=== PATIENT | female | born 1990 | race Caucasian/White ===

== ENCOUNTER → 2018-08-03 | Outpatient (CLI) | payer BC ==
[~2018-08-03] MED LIST: ALB0.5 IH; ALBU8.5H12 IH; ALBUTEROL INHALER; AZIT-1 PO; AZIT-18 PO; FLUC150T40 PO; FLUC200T52 PO; HYDR5SYR2 PO; IRON; POTASSIUM; PRED20TA6 PO; VITAMIN B 12
--- NOTE | 2018-08-03 10:59 | RADIOLOGY IMAGING REPORT ---
FACILITY: [facility] PATIENT NAME: Vandana Scott : 1990 MR: [id number] V: [id number] EXAM DATE: ORDERING PHYSICIAN: KILEY BECKETT TECHNOLOGIST: Location: [facility] [place] Patient: Vandana Scott : 1990 Visit/Account:[id number] Date of Sevice: 08/03/2018 Exam type: CHEST PA AND LAT History: Shortness of breath, chest pain and cough since July 31, 2018 Comparison: January 03, 2014. Findings: The lungs are free of acute effusions, infiltrates or edema. There is no evidence of a pneumothorax or pneumomediastinum Cardiac silhouette is normal in size. The trachea is in midline. IMPRESSION: 1. No acute cardiopulmonary process is seen Report Dictated By: Jessie Crane MD at 08/03/2018 10:54 AM Report E-Signed By: Jessie Crane MD at 08/03/2018 10:55 AM WSN:[id number]
== END ==
LOC: RAD 10:22
PROVIDERS: ATTEND Nurse Practitioner Family
DX: R05 Cough (principal); R50.9 Fever, unspecified
CPT/HCPCS: 71046

== ENCOUNTER 2019-03-03 16:00 | Outpatient (RCR) | payer BC ==
--- NOTE | 2019-02-09 15:32 | PT INITIAL EVALUATION ---
MEDICAL DIAGNOSIS: MCL Strain, Overexertion of Right Knee TREATMENT DIAGNOSIS: Right MCL Strain, Right Patellofemoral Syndrome DATE OF ONSET: 02/08/19 SUBJECTIVE: Vandana is a 28 year old female presenting to physical therapy following recent injury to her R knee while playing roller derby. Pt reports that she started having pain around January 15 but that the pain increased substantially following a fall on January 22, 2019. Pain is located on the medial R knee and occasionally above the knee cap. Pain is currently minimal after resting it at 0-1/10 but typically is around 5-6/10 range. Pain is improved with ice and using CBD cream on it. Pain is increased with skating (stopping and cutting specifically), prolonged walking and twisting with it frequently feeling unsteady. Pain is worst at 9-10/[address] last Wednesday after refing a derby bout on Wednesday resulting in a limp and pain with leg extension. Pt had an US on January 27 confirming suspected MCL strain at a grade 1-2 level. REHAB PROBLEM LIST: Increased Pain Decreased ROM Decreased Strength Decreased Endurance Decreased Balance Decreased Function Decreased ADL's Decreased Mobility Decreased Gait PREVIOUS MEDICAL HISTORY: See EMR OCCUPATION: Radio DJ OBJECTIVE: Pt presents with minimal swelling along the medial R joint line. ROM: Knee ROM (R,L): 6-0-142, 6-0-146 Strength: LE MMT (R, L): Hip: flexion: 4-/5, 4-/5, ext: 5-/5, 5/5, abd: 4+/5, 4+/5, add: 4+/5, 5/5. Knee: flexion: 4/5 with pain, 5/5, ext: 4/5, 5/5. Ankle: DF: 5/5, 5/5, PF: 5/5, 5/5. Palpation: Pt is ttp along the R MCL and semitendinosus and semimembranosus Special Tests: (+) MCL laxity R with pain reproduction, (-) all other ligamentous testing, (+) lateral patellar tracking in 5/5 quad activations with minimal VMO activation Mobility: B LE Squatting x5: lateral R knee placement, SLS x5: significant medial hip collapse B with instability on R LE ASSESSMENT: "Francisca" presents with signs and symptoms consistent with patellofemoral syndrome B with R MCL strain. Physical therapy is indicated to address the above listed deficits to improve function with ADL's and recreational activities. Short Term Goals In 2 weeks pt will have good medial quad activation with medial patellar tracking with 5/5 quad sets for improved function with ADL's. In 4 weeks pt will be able to perform 5 SLS squats with good hip and knee mechanics for improved function with ADL's. In 6 weeks pt will be able to perform cutting and pivoting exercises without onset of knee pain for return to sport. In 6 weeks pt will increase strength as tested by MMT to 4+/5 or greater for improved function with ADL's. Patient's Goals Return to sport without knee pain. PLAN: Patient to be seen for Manual Therapy/STM/MET Strengthening/condition Ice/Heat Range of Motion Spinal Stabilization Ultrasound Stretching Iontophoresis Neuromuscular Re-ed Closed Chain Program Electrical Stim Posture/Body mechanics Gait Trg/Balance Trg Biofeedback Home Exercise Program Mech./Manual Traction Therapeutic Activities 2x/Week for 6 Weeks If you have any questions, comments, or concerns about this report or plan, please contact me at . Thank you, Chelsea Goodman, PT, DPT, CLT Referring Provider Signature: Date: MTDD
== END 2019-03-03 18:00 | disposition home or self-care (01) ==
LOC: PT 16:00
PROVIDERS: ATTEND Family Medicine Sports Medicine
DX: S83.411A Sprain of medial collateral ligament of right knee, initial encounter (principal); X50.0XXA Overexertion from strenuous movement or load, initial encounter
CPT/HCPCS: 97161